=== PATIENT | female | born 1985 | race Caucasian/White ===

== ENCOUNTER 2019-03-17 00:40 | Observation (INO) | payer BC, MEDICAID ==
[2019-03-17] VITALS (10 sets, daily range): BP systolic 124–137; BP diastolic 91–100
[~2019-03-17] VITALS: Ht 180.3 cm; Wt 98.0 kg
[~2019-03-17 00:40] MED LIST: BISA-107 PO; CHOL200074 PO; IBUP800T37 PO; MAGN250T34 PO; MULT-1156 PO; PER PO; ceFAZolin(*) 2GM/D5W 50ML 50 ML IVPB ONE
[2019-03-17] MEDS: NORMOSOL R SOLN(*) 1000 ML BAG 1,000 ML IV PRN ×2 (06:47→11:59)
[2019-03-17] MEDS ORDERED: SCOP1PAT16 TD (06:49)
[2019-03-17] MEDS ORDERED: ROPIVACAINE 0.2% 20 ML VIAL ONE (07:01)
[2019-03-17] MEDS ORDERED: MANNITOL* (20%)100 GM/500ML BG 500 ML IVPB ONE ×2 (07:01→11:12)
[2019-03-17 07:25] LABS: PLATELET COUNT, AUTOMATED 262 K/uL (150-450)
[2019-03-17] MEDS ORDERED: FAMOTIDINE 20 MG TAB PO ONE (07:40)
[2019-03-17] MEDS ORDERED: LIDOCAINE/SOD BICARB 8.4% SYR ID ONE (07:40)
[2019-03-17] MEDS ORDERED: MIDAZOLAM 2 MG/2 ML VIAL IVP PRN (07:40)
[2019-03-17] MEDS ORDERED: ceFAZolin(*) 2GM/D5W 50ML 50 ML IVPB ONE (08:00)
--- NOTE | 2019-03-17 08:03 | NUR ---
AFTER PLACEMENT OF SECOND IV PT. STATES THAT SHE IS DIZZY AND SO I LAID HER FLAT IN BED AND PLACED HER IN TRENDELENBURG. AFTER A COUPLE OF MINUTES PT. STATES THAT SHE IS BETTER AND NO LONGER DIZZY.
[2019-03-17] MEDS ORDERED: PROPOFOL EMUL(*) 10MG/ML 20 ML 20 ML ONE ×2 (08:42→09:03)
[2019-03-17] MEDS ORDERED: LIDOCAINE 2% IV 100 MG/5ML SYR ONE (08:42)
[2019-03-17] MEDS ORDERED: fentaNYL CITR 250 MCG/5 ML AMP ONE (08:42)
[2019-03-17] MEDS ORDERED: DEXAMETHASONE SOD 4 MG/ML VIAL ONE (09:15)
[2019-03-17] MEDS ORDERED: KETAMINE HCL 200 MG/20 ML MDV ONE ×2 (09:15→10:10)
[2019-03-17] MEDS ORDERED: fentaNYL CITR 100 MCG/2 ML AMP ONE ×3 (10:08→12:01)
[2019-03-17] MEDS ORDERED: SUGAMMADEX SOD 200 MG/2 ML SDV ONE (10:57)
[2019-03-17] MEDS ORDERED: KETOROLAC 30 MG/ML VIAL ONE (11:07)
[2019-03-17] MEDS ORDERED: ONDANSETRON 4 MG/2 ML VIAL ONE (11:07)
[2019-03-17] MEDS ORDERED: SIMETHICONE 80 MG CHEW CHEW PRN (11:35)
[2019-03-17] MEDS ORDERED: ONDANSETRON 4 MG/2 ML VIAL IV PRN (11:35)
[2019-03-17] MEDS ORDERED: DLR(*) 1000 ML BAG 1,000 ML IV PRN (11:35)
[2019-03-17] MEDS ORDERED: ACETAMINOPHEN 325 MG TAB PO PRN (11:35)
[2019-03-17] MEDS ORDERED: INFLUENZA VIRUS VAC 0.5ML SYR IM ONLY ONE (11:35)
[2019-03-17] MEDS ORDERED: HYDROmorphone HCL 2 MG TAB PO PRN (11:35)
[2019-03-17] MEDS ORDERED: PROMETHAZINE 25 MG/ML 1 ML AMP IVP PRN (11:35)
--- NOTE | 2019-03-17 11:42 | Post Operative Note ---
Operative Note - FINISHING FRAME RUNNER Operative Day Date: March 17, 2019 Time: 11:40 Physicians Surgeon: Keegan Gold Buyer: Marlene Padilla Anesthesia: GETA Diagnosis Pre-Op Diagnosis: Menorrhagia Dysmenorrhea Post-Op Diagnosis: same pelvic adhesive disease Procedure Findings: adhesions enlarged uterus Procedure(s): RATLH BS Adhesiolysis Cysto Specimen Removed:(Maybe N/A): uterus, tubes Complications: none Fluids Fluids: 2000 ml Estimated Blood Loss: 50 ml Dictated Date OP Note Dictated: March 17, 2019 Time OP Note Dictated: 11:42 Copies to: GARRETT MAR MD ; GARRETT MAR MD March 17, 2019 11:42
[2019-03-17] MEDS ORDERED: IBUP800T37 PO (11:44)
[2019-03-17] MEDS ORDERED: DOCU-416 PO (11:44)
[2019-03-17] MEDS ORDERED: OXYC-865 PO (11:44)
[2019-03-17] MEDS ORDERED: MIDAZOLAM 2 MG/2 ML VIAL ONE (12:14)
--- NOTE | 2019-03-17 12:53 | OPERATIVE REPORT 1 ---
EVENT DATE: March 17, 2019 SURGEON: Jimenez Allison MD ANESTHESIOLOGIST: Vniod Saunders MD ANESTHESIA: General endotracheal. WAREHOUSE FOREMAN: Marlene Paidlla PA-C PREOPERATIVE DIAGNOSIS 1. Menorrhagia. 2. Secondary dysmenorrhea. POSTOPERATIVE DIAGNOSIS 1. Menorrhagia. 2. Secondary dysmenorrhea. 3. Pelvic intraabdominal adhesions. PROCEDURE PERFORMED 1. Robotic-assisted laparoscopic adhesiolysis (30 minutes). 2. Robotic-assisted total laparoscopic hysterectomy. 3. Robotic-assisted laparoscopic bilateral salpingectomy. 4. Modified Jara's culdoplasty. 5. Diagnostic cystoscopy. ESTIMATED BLOOD LOSS 50 cc. FLUIDS 2000 cc IV crystalloid. URINE OUTPUT Not measured. FINDINGS Upon inspecting the pelvis through the laparoscope, there was immediately noted a omental adhesion near the umbilicus of moderate size. Just past the omental adhesion, the uterus was in view and was quickly apparent to be adhered to the anterior abdominal wall and along the left anterior abdominal wall. There was descending colon adherent to the left pelvic side-wall in the left adnexa. The bladder and anterior peritoneum was adherent to the anterior cervix and uterus. DESCRIPTION OF PROCEDURE The patient was brought to the operating room with a working IV. She was placed in the dorsal supine position on the operating table. She was placed under general endotracheal anesthesia and moved to the dorsal lithotomy position. She was then prepped and draped in the usual sterile fashion. A weighted speculum was placed in the vagina. The cervix was grasped on the anterior lip with a single-toothed tenaculum. This was sounded to a depth of 12 cm anteverted. It was carefully dilated to a size 4 Hegar dilator and a medium cup, VCare uterine manipulator was selected, assembled and sutured to the cervix, passed through the cervix into the uterus, and the bulb inflated and secured. The VCare cup was tied and secured to the cervix. The blue Pneumocup was approximated against the VCare cup and secured in place. A Ramey catheter was placed to dependent drainage and gloves were changed. The legs were brought back to the supine position and we proceeded with the laparoscopy by first measuring above the target anatomy 12 cm, which ended up being 3 cm above the umbilicus. This area was marked, infiltrated with 0.2% Naropin and an 8 mm stab incision was made. The Veress needle was passed through this incision into the abdomen while elevating the anterior abdominal wall with towel clamps. We confirmed intraabdominal presence by observing a drop in the intraabdominal pressure while elevating the anterior abdominal wall. Pneumoperitoneum was created to an intraabdominal pressure of 20 mmHg and the Veress needle was removed. A bladeless trocar was then passed through the incision under direct visualization through the scope and performed without incident. The laparoscope was then used to inspect the abdomen and pelvis with the above findings noted. Additional robotic ports were placed as follows: Two left lateral to the umbilical port, spaced 8 cm apart and two right lateral also spaced 8 cm apart. These were placed under direct visualization and under a similar technique and without incident. The patient was then moved to the steep Trendelenburg position and the robot was brought overlying the patient. The #2 arm was docked at the umbilical port and the camera was attached. The target anatomy was brought into view and targeting procedure was performed and passed. Therefore, the remaining arms were docked and all instruments were placed under direct visualization with the scope into the patient's abdomen. Once those were all secure, I scrubbed out and presented to the console. The procedure proceeded as follows: The omental adhesion was first addressed using the monopolar scissors to carefully take down the omental adhesion from its anterior abdominal wall connection. Once that was completed, attention was then turned to the uterus. There was a large adhesion of the uterine body to the left anterior pelvic side-wall. The descending colon was adherent to the left adnexa and the left pelvic side-wall, therefore, the colon was first addressed by taking it down from its left pelvic side-wall attachment using monopolar scissors and careful dissection. The ovary and tube were then freed from their adhesive connections and then the anterior uterine adhesion was addressed. Careful dissection through this area was performed in order to protect the bladder, ultimately dissecting into the anterior leaflet of the broad ligament and transecting the round ligament in this location to further assist with dissection. Once that had been adequately dissected and visualized, approximately 30 minutes had transpired. Attention was then turned to performing the hysterectomy. The right fallopian tube was grasped and put medial stretch, exposing the mesosalpinx. This was cauterized and transected through the medial salpinx using the vessel sealer and performed up to the uteroovarian ligament which then was cauterized and transected with the vessel sealer. The round ligament on this side was cauterized and transected entering the broad ligament and those into anterior and posterior leaflets. The anterior leaflet was followed anteriorly to complete the anterior dissection and then attention was turned to carefully dissecting the bladder off of the anterior uterus and the upper cervix. It took some time to carefully insure that the bladder was not overly adherent to the anterior uterus and that it had indeed been push down in order to encounter the VCare cup. Once the indentation from the VCare cup below was identified, the bladder had already been dissected away and the vaginal mucosa was then exposed and an anterior colpotomy was performed in order to identify the cup. Attention was then turned posteriorly skeletonizing the uterine vasculature by taking down the posterior leaflet of the broad ligament. The uterine vessels were then cauterized x2 in a perpendicular fashion and transected, followed by parallel bites along the lateral uterus, down to and overlying the VCare cup. Attention was then turned to the contralateral size. The round ligament had already been transected. Therefore, the left fallopian tube was dissected away from its mesosalpinx up to the uteroovarian ligament which was then cauterized and transected with the vessel sealer. Further bites into the broad ligament were performed in order to separate the anterior and posterior leaflets. The anterior dissection was completed and posteriorly the uterine vasculature was skeletonized. The uterine vessels were then cauterized in perpendicular fashion x2, transected and the parallel bites along the lateral uterus were performed down to and overlying the VCare cup. At this point, the vaginal colpotomy was extended circumferentially through the uterosacral ligaments bilaterally into the contralateral side, releasing the cervix and the uterus from its attachment. The uterus was taken out through the vagina. There was a light amount of oozing from both uterosacral ligaments and angle locations which received a light amount of monopolar cautery. Instruments were then changed for suturing. An 0 Vicryl was used to suture ligate the angle of the vagina to the ipsilateral uterosacral ligament. This was performed bilaterally in a [id number] fashion. The remaining vaginal cuff was closed with a 2-0 V-Loc stitch in a running nonlocking fashion along its entire length with excellent reapproximation of the skin edges and hemostasis achieved. The pelvis was then copiously irrigated and suctioned dry. No visible bleeders or complications. Therefore, the procedure was deemed complete. All instruments were then removed and the peritoneum was suctioned out. The robot was undocked and taken away. All ports were removed from the patient's abdomen. Skin incisions were repaired with a 4-0 Monocryl simple subdermal and covered with Dermabond skin adhesive. The vagina was inspected, wiped clean of any clots. The cuff was visibly intact and with a good approximation of skin edges. A diagnostic cystoscopy was then performed using Mannitol as a cystoscopy fluid. The entire bladder was inspected and found to be without injury. Both ureteral orifices were observed to have an excellent urine jet, confirming ureteral patency. The bladder was then drained, the Ramey was left out. The legs were brought back to the supine position. The patient was gently awakened from general anesthesia in stable condition and taken to the recovery room. Sponge, lap , needle and instrument counts were all correct x3. MTDD
[2019-03-17] MEDS: oxyCODON/ACET (*)5/325MG (CII) 1 TAB TAB PO PRN ×3 (15:49→20:54)
[2019-03-17] MEDS: KETOROLAC 30 MG/ML VIAL IVP SCH ×2 (16:32→23:30)
[2019-03-17] MEDS: FAMOTIDINE 20 MG TAB PO SCH (20:53)
[2019-03-17] MEDS: DOCUSATE CALCIUM 240 MG CAP PO SCH (20:53)
[2019-03-17] MEDS ORDERED: ZOLPIDEM TARTRATE 10 MG TAB PO PRN (21:00)
[2019-03-18 00:26] VITALS: BP 117/94
[2019-03-18] MEDS: KETOROLAC 30 MG/ML VIAL IVP SCH (05:00)
[2019-03-18 06:00] VITALS: BP 135/95
[2019-03-18 06:27] LABS: PLATELET COUNT, AUTOMATED 262 K/uL (150-450)
[2019-03-18 09:10] VITALS: BP 142/92
[2019-03-18] MEDS: DOCUSATE CALCIUM 240 MG CAP PO SCH (09:42)
[2019-03-18] MEDS: FAMOTIDINE 20 MG TAB PO SCH (09:42)
[2019-03-18 09:53] VITALS: Ht 180.3 cm; Wt 98.0 kg
--- NOTE | 2019-03-18 10:28 | OB/GYN Progress Note ---
OB Subjective Progress Notes Subjective Doing well. Pain controlled and ambulating well. Wants to go home. GI: POS Flatus; NEG Nausea : Voiding Well Pain: Mild OB Objective Physical Exam Vital Signs Date Time Temp Pulse Resp B/P (MAP) Pulse Ox O2 Delivery O2 Flow Rate FiO2 03/18/19 09:10 98.2 87 20 142/92 (109) 98 Room Air 03/17/19 13:45 1.0 Intake and Output 03/18/19 07:00 Intake Total 2950 ml Output Total 1275 ml Balance 1675 ml IV Total 2950 ml Output Urine Total 1225 ml Estimated Blood Loss 50 ml # Voids 5 General Appearance: Alert/Awake/No Acute Distress Neurological: No Gross deficits Cardiovascular: Normal Rhythm & Peripheral Pulses, Regular Rate and Rhythm Respiratory: No Respiratory Distress, Clear to Auscultation Abdomen: Soft, Non-Tender, Non-Distended Integumentary: Other (red rash where she was in contact with adhesive) Psychological: Alert & Oriented X3, Appropriate Mood & Affect Result Diagram: 03/18/19 0615 Assessment and Plan VP DATA Plan: Routine Post-Op Care, Discharge Home Today Problems: (1) Menorrhagia (2) Dysmenorrhea (3) Abdominal adhesions (4) History of robot-assisted laparoscopic hysterectomy Assessment & Plan: will use Benadryl for rash and standard precautions reviewed GARRETT MAR MD March 18, 2019 10:28
[2019-03-18] MEDS ORDERED: diphenhydrAMINE 25 MG CAP PO ONE (10:30)
--- NOTE | 2019-03-18 10:30 | Short(Outpt) Discharge Summary ---
Discharge Summary Reason for Hosp/Final Diag: (1) Menorrhagia (2) Dysmenorrhea (3) Abdominal adhesions (4) History of robot-assisted laparoscopic hysterectomy Hospital Course & Plan: will use Benadryl for rash and standard precautions reviewed Departure Discharge to: Home, Self Care Discharge Instructions Home Meds Active Scripts Ibuprofen (IBUPROFEN) 800 Mg Tablet, 1 TAB PO Q8H, #30 TAB 0 Refills Take with food every 8 hours. Prov:RIDDHI CHRISTIANSON 03/17/19 Docusate Sodium (COLACE) 100 Mg Capsule, 100 MG PO BID PRN for CONSTIPATION for 10 Days, #20 CAPSULE Prov:RIDDHI CHRISTIANSON 03/17/19 Oxycodone Hcl/Acetaminophen (PERCOCET 5-325 MG TABLET) 1 Each Tablet, 1 EACH PO Q4-6H PRN for PAIN, #20 TAB 0 Refills TAKE 1 TABLET NEEDED FOR PAIN - NO CLOSER THAN EVERY 4-6 HOURS. Prov:RIDDHI CHRISTIANSON 03/17/19 Ibuprofen (IBUPROFEN) 800 Mg Tablet, 1 TAB PO Q8H PRN for pain, #40 TAB 0 Refills Prov:ROSS WATERS MD 04/05/15 Reported Medications Scopolamine (Scopolamine) 1 Mg/3 Day Patch.td.3, 1 PATCH TD 03/17/19 Magnesium Oxide (MAGNESIUM) 250 Mg Tablet, 250 MG PO QAM 03/14/19 Cholecalciferol (Vitamin D3) (VITAMIN D-3) 2,000 Unit Capsule, 4000 UNIT PO QAM, CAPSULE 03/14/19 Discontinued Reported Medications Bisacodyl (LAXATIVE) 5 Mg Tablet, PO 04/03/15 Multivitamin (CHEWABLE MULTI VITAMIN) 1 Each Tab.chew, 1 EACH PO, TAB.CHEW 04/03/15 Discontinued Scripts Oxycodone/Acetaminophen (OXYCODONE/ACETAMINOPHEN 5MG/325 MG) 5 Mg/325 Mg Tab, 1- 2 TAB PO Q4H PRN for pain, #40 TAB 0 Refills Prov:ROSS WATERS MD 04/05/15 Follow up Referrals: [facility] - In Two Weeks @ [facility] with GARRETT MAR MD Diet: Regular Activity: As Tolerated, No Heavy Lifting, No Exertion Special Instructions: PLEASE CALL AND SCHEDULE YOUR FOLLOW UP APPOINTMENT WITH DR MAR FOR 2 WEEKS Copies to: GARRETT MAR MD ; GARRETT MAR MD March 18, 2019 10:30
[2019-03-18] MEDS ORDERED: IBUPROFEN 800 MG TAB PO PRN (11:00)
== END 2019-03-18 10:29 | disposition home or self-care (01) ==
LOC: OR 00:40 → PED 13:05 → UNDOADMOB 13:05
PROVIDERS: ADMIT Obstetrics & Gynecology; ATTEND Obstetrics & Gynecology
DX: N92.0 Excessive and frequent menstruation with regular cycle (principal); N94.5 Secondary dysmenorrhea
CPT/HCPCS: 36415; 58571; 84703; 85014; 85018; 85025; 88307; G0378; J1100; J1885; J2001; J2250; J2405; J2704; J2795; J3010; J3490; Q0163; S2900; J0690